=== PATIENT | female | born 1990 | race Caucasian/White ===

== ENCOUNTER 2017-03-05 13:18 | Emergency (ER) | payer BC, OTHER ==
[2017-03-05 13:52] VITALS: BP 111/59
--- NOTE | 2017-03-05 14:17 | UC ---
Respiratory Complaint HPI - HPI Summary HPI Summary: she has had vomiting and nausea earlier in the . this improved. she then started to get congestion and then a cough as well as malaise. this has been slow onset. chills last night without any known fever. - History of Current Complaint Chief Complaint: UCGeneralIllness Stated Complaint: FLU-LIKE SYMPTOMS Time Seen by Provider: 03/05/17 14:07 Hx Obtained From: Patient Hx Last Menstrual Period: 03/17/16 Onset/Duration: Gradual Onset Timing: Constant Severity Initially: Mild Severity Currently: Mild Character: Cough: Nonproductive Aggravating Factors: Nothing Alleviating Factors: Nothing Associated Signs And Symptoms: Positive: Chills, URI, Nasal Congestion. Negative: Dyspnea, Fever, Pleuritic Chest Pain, Wheezing, Dizziness, Calf Pain, Calf Swelling, Sinus Discomfort - Allergies/Home Medications Allergies/Adverse Reactions: Allergies Allergy/AdvReac Type Severity Reaction Status Date / Time No Known Allergies Allergy Verified 03/05/17 13:52 PMH/Surg Hx/FS Hx/Imm Hx Previously Healthy: Yes - Surgical History Surgical History: None - Family History Known Family History: Positive: Hypertension - father, Other - daughter had uri and congestion recently as well. Negative: Cardiac Disease, Diabetes - Social History Alcohol Use: None Substance Use Type: None Smoking Status (MU): Never Smoked Tobacco Review of Systems ENT: Sinus Congestion Respiratory: Cough All Other Systems Reviewed And Are Negative: Yes Physical Exam Triage Information Reviewed: Yes Appearance: Well-Appearing, No Pain Distress, Well-Nourished Vital Signs: Initial Vital Signs Temp 97.6 F 03/05/17 13:48 Pulse 62 03/05/17 13:48 Resp 16 03/05/17 13:48 BP 111/59 03/05/17 13:48 Pulse Ox 100 03/05/17 13:48 Vital Signs Reviewed: Yes Eye Exam: Normal ENT Exam: Normal Dental Exam: Normal Neck exam: Normal Respiratory Exam: Normal Cardiovascular Exam: Normal Abdominal Exam: Normal Musculoskeletal Exam: Normal Neurological Exam: Normal Psychological Exam: Normal Skin Exam: Normal UC Diagnostic Evaluation - Laboratory O2 Sat by Pulse Oximetry: 100 Respiratory Course/Dx - Course Course Of Treatment: uri symptoms. clinically this is not c/w with influenza. we will check as she is and requests the test. she has no worrisome features of bacterial infection nor serious infection. she has normal vitials. - Differential Dx/Diagnosis Provider Diagnoses: viral illness. uri Discharge - Discharge Plan Condition: Good Disposition: HOME Patient Education Materials: Upper Respiratory Infection (ED) Referrals: Yong MCDOWELL,Minerva Cheng [Primary Care Provider] - If Needed
== END 2017-03-05 14:34 | disposition home or self-care (01) ==
LOC: UCCORT 13:18
DX: O99.511 Diseases of the respiratory system complicating pregnancy, first trimester (principal); J06.9 Acute upper respiratory infection, unspecified; Z3A.00 Weeks of gestation of pregnancy not specified
CPT/HCPCS: 87502; 99212; G0463

== ENCOUNTER 2017-05-25 09:06 | Emergency (ER) | payer BC, OTHER ==
[2017-05-25 09:30] VITALS: BP 107/65
--- NOTE | 2017-05-25 10:07 | UC ---
Respiratory Complaint HPI - HPI Summary HPI Summary: Cough, congestion for about 5 days. NO calf pain or swelling. No swelling. NO fever. No chronic lung disease. Worse at night. - History of Current Complaint Chief Complaint: UCGeneralIllness Stated Complaint: BILATERAL EAR PAIN CHEST CONGESTION Time Seen by Provider: 05/25/17 09:50 Hx Obtained From: Patient Hx Last Menstrual Period: 03/17/16 Onset/Duration: Gradual Onset, Lasting Days Timing: Constant Severity Initially: Moderate Severity Currently: Moderate Character: Cough: Nonproductive Aggravating Factors: Deep Breaths, Recumbent Position Alleviating Factors: Upright Position, Spontaneous Resolution Associated Signs And Symptoms: Positive: URI, Nasal Congestion. Negative: Dyspnea - denies air hunger. There is some chest discomfort with deep breaths khoa but more on the right., Fever, Hemoptysis, Calf Pain, Calf Swelling, Edema - Allergies/Home Medications Allergies/Adverse Reactions: Allergies Allergy/AdvReac Type Severity Reaction Status Date / Time No Known Allergies Allergy Verified 05/25/17 09:30 PMH/Surg Hx/FS Hx/Imm Hx Previously Healthy: Yes - Surgical History Surgical History: None - Family History Known Family History: Positive: Hypertension - father, Other - daughter had uri and congestion recently as well. Negative: Cardiac Disease, Diabetes - Social History Occupation: Employed Full-time Lives: With Family Alcohol Use: None Substance Use Type: None Smoking Status (MU): Never Smoked Tobacco - Immunization History Most Recent Influenza Vaccination: not yet - waiting for obgyn to give mercury free inj. Review of Systems Respiratory: Cough All Other Systems Reviewed And Are Negative: Yes Physical Exam Triage Information Reviewed: Yes Appearance: Well-Appearing, No Pain Distress, Well-Nourished Vital Signs: Initial Vital Signs Temp 97.5 F 05/25/17 09:23 Pulse 96 05/25/17 09:23 Resp 18 05/25/17 09:23 BP 107/65 05/25/17 09:23 Pulse Ox 100 05/25/17 09:23 Vital Signs Reviewed: Yes Eyes: Positive: Conjunctiva Clear ENT: Positive: Normal ENT inspection, Hearing grossly normal, Nasal congestion, TMs normal, Muffled voice, Uvula midline. Negative: Pharynx normal, Pharyngeal erythema, TM bulging, TM dull, TM red, Tonsillar swelling, Tonsillar exudate, Trismus Neck: Positive: Supple, Nontender, No Lymphadenopathy Respiratory: Positive: Chest non-tender, Lungs clear, Normal breath sounds, No respiratory distress, No accessory muscle use. Negative: Respiratory distress, Decreased breath sounds, Accessory muscle use, Crackles, Rhonchi, Stridor, Wheezing Cardiovascular Exam: Other - HR is 90. Cardiovascular: Positive: RRR, No Murmur, Pulses Normal, Brisk Capillary Refill Abdomen Description: Positive: Nontender, No Organomegaly, Soft. Negative: Distended, Guarding Musculoskeletal Exam: Normal Musculoskeletal: Positive: Strength Intact, ROM Intact, No Edema, Other: - NO calf pain, swelling and neg homans khoa. Neurological: Positive: Alert, Muscle Tone Normal. Negative: Fatigued Psychological: Positive: Age Appropriate Behavior Skin: Negative: rashes UC Diagnostic Evaluation - Laboratory O2 Sat by Pulse Oximetry: 100 Respiratory Course/Dx - Course Course Of Treatment: PE considered but discomfort is khoa chest, there is no sob , no signs of DVT and no tachycardia. Ears are well khoa without any external canal swelling or tenderness. - Differential Dx/Diagnosis Provider Diagnoses: chest cold. viral uri. acute viral bronchitis. Discharge - Discharge Plan Condition: Good Disposition: HOME Patient Education Materials: Upper Respiratory Infection (ED) Referrals: Yong MCDOWELL,Minerva Cheng [Primary Care Provider] -
== END 2017-05-25 10:08 | disposition home or self-care (01) ==
LOC: UCCORT 09:06
DX: R09.89 Other specified symptoms and signs involving the circulatory and respiratory systems (principal); J06.9 Acute upper respiratory infection, unspecified; J20.8 Acute bronchitis due to other specified organisms
CPT/HCPCS: 99211; G0463

== ENCOUNTER 2017-07-23 08:26 | Emergency (ER) | payer BC ==
[2017-07-23 09:03] VITALS: BP 120/61
--- NOTE | 2017-07-23 09:18 | UC ---
Back Pain HPI - HPI Summary HPI Summary: Per event staff: "states was holding her [age] year old yesterday and felt back "give out." C/o sharp pain across entire lower back, states history of back pain due to herniated discs, shes not sure which level these are at. She is currenlty 28 weeks , saw OBGYN yesterday who suggested a cortisone injection. " -here with her Cheng. -country printer Judson Acosta. he told her to come here for a steroir ijection. -pain is in b/l low back just lateral to sacrum on both sides. no radiation. no w/n/t. no saddle anesthesia. no loss of B/B function. -renata is a PT and showed her a "bunch of exercise" that made pain worse ( extension types). then he showed her opposite exercises (flexion) that seemed to help, but tthen not. then he told her not to do any exercises and just ice. -she hasnt done topical patches. iced a lot. no better -expecting to get a cortisone injection today. + movement, no spotting/bleeding. OB told her everything was nml yesterday. - History of Current Complaint Chief Complaint: UCBackPain Stated Complaint: BACK PAIN Time Seen by Provider: 07/23/17 08:54 Hx Last Menstrual Period: 03/17/16 Pain Intensity: 8 - Allergies/Home Medications Allergies/Adverse Reactions: Allergies Allergy/AdvReac Type Severity Reaction Status Date / Time No Known Allergies Allergy Verified 07/23/17 08:59 Home Medications: Home Medications Amoxicillin PO (*) [Amoxicillin 500 MG CAP*] 500 mg PO BID 07/23/17 [History Confirmed 07/23/17] PMH/Surg Hx/FS Hx/Imm Hx Previously Healthy: Yes - Surgical History Surgical History: None - Family History Known Family History: Positive: Hypertension - father, Other - daughter had uri and congestion recently as well. Negative: Cardiac Disease, Diabetes - Social History Alcohol Use: None Substance Use Type: None Smoking Status (MU): Never Smoked Tobacco - Immunization History Most Recent Influenza Vaccination: not yet - waiting for obgyn to give mercury free inj. Review of Systems Constitutional: Negative Skin: Negative Eyes: Negative ENT: Negative Respiratory: Negative Cardiovascular: Negative Gastrointestinal: Negative Genitourinary: Negative Motor: Negative Neurovascular: Negative Musculoskeletal: Arthralgia Neurological: Negative Psychological: Negative Is Patient Immunocompromised?: No All Other Systems Reviewed And Are Negative: Yes Physical Exam Triage Information Reviewed: Yes Appearance: Well-Nourished, Pain Distress - mild. sitting in chair slightly skewed, favoring her right side. Vital Signs: Initial Vital Signs Temp 98 F 07/23/17 08:57 Pulse 93 07/23/17 08:57 Resp 16 07/23/17 08:57 BP 120/61 07/23/17 08:57 Pulse Ox 100 07/23/17 08:57 Vital Signs Reviewed: Yes Respiratory: Positive: Lungs clear, Normal breath sounds, No respiratory distress Cardiovascular Exam: Normal Cardiovascular: Positive: RRR, No Murmur Abdomen Description: Positive: Other: - gravid Musculoskeletal Exam: Normal - although exam limited d/t pain. she points to b/ l SI joint areas as areas of pain. there is no swelling. no bruising. she ambulates with minimal dififculty. Neurological Exam: Normal Psychological Exam: Normal, Other Back Pain Course/Dx - Course Course Of Treatment: discussed limitations in pain management due to . Explained that cortisone injection would be deferred to pain management, however would require CT imaging that is not recommended w/ . -she can discuss if a medrol dose pack would be more beneficial than risks in . -OOW note given for 2 days. -rest, ice, icy hot patches. -she is tearful and I tried to reconsole the best I could. - Differential Dx/Diagnosis Differential Diagnosis/HQI/PQRI: Herniated Disc, Strain, Sprain Provider Diagnoses: Sacroilitis, Discharge - Discharge Plan Condition: Stable Disposition: HOME Patient Education Materials: Acute Low Back Pain (ED) Forms: *Work Release Referrals: Yong MCDOWELL,Minerva Cheng [Primary Care Provider] - 5 Days Additional Instructions: We talked about limitations in pain management due to . You can discuss oral prednisone with your OB and discuss safety of treatment in . Out of work note given for 07/24 & 07/25/17.
== END 2017-07-23 09:50 | disposition home or self-care (01) ==
LOC: UCCORT 08:26
DX: O26.893 Other specified pregnancy related conditions, third trimester (principal); Z3A.28 28 weeks gestation of pregnancy; M46.1 Sacroiliitis, not elsewhere classified
CPT/HCPCS: 99211; G0463

== ENCOUNTER 2018-04-01 18:26 | Emergency (ER) | payer BC ==
[2018-04-01 19:20] VITALS: BP 123/69
--- NOTE | 2018-04-01 19:37 | UC ---
Bite Injury/Animal HPI - HPI Summary HPI Summary: 27-year-old woman comes in with a tick bite on the right forearm. Patient was out working in the yard with poison sumac 4 days ago. Today she recognized a tick in her right forearm. There is no rash associated with. She feels well otherwise. She has a history of having Lyme disease once and been treated with amoxicillin for IT. She also has rash on the dorsum of her right forearm that' s blistering and it appears to be either poison sumac or poison IV. - History of Current Complaint Chief Complaint: UCSkin Stated Complaint: TICK Time Seen by Provider: 04/01/18 19:19 Hx Last Menstrual Period: 03/09/18 Pain Intensity: 0 - Allergies/Home Medications Allergies/Adverse Reactions: Allergies Allergy/AdvReac Type Severity Reaction Status Date / Time No Known Allergies Allergy Verified 04/01/18 19:15 PMH/Surg Hx/FS Hx/Imm Hx - Additional Past Medical History Additional PMH: Patient is breast-feeding at this time Previously Healthy: Yes - Surgical History Surgical History: None - Family History Known Family History: Positive: Hypertension - father, Other - daughter had uri and congestion recently as well. Negative: Cardiac Disease, Diabetes - Social History Alcohol Use: None Substance Use Type: None Smoking Status (MU): Never Smoked Tobacco - Immunization History Most Recent Influenza Vaccination: not yet - waiting for obgyn to give mercury free inj. Most Recent Tetanus Shot: UTD Review of Systems Constitutional: Negative Skin: Other - SEE HPI Eyes: Negative ENT: Negative Respiratory: Negative Cardiovascular: Negative Gastrointestinal: Negative Motor: Negative Neurovascular: Negative Musculoskeletal: Negative Neurological: Negative Psychological: Negative Is Patient Immunocompromised?: No All Other Systems Reviewed And Are Negative: Yes Physical Exam Triage Information Reviewed: Yes Appearance: Well-Appearing, No Pain Distress, Well-Nourished Vital Signs: Initial Vital Signs Temp 97.2 F 04/01/18 19:16 Pulse 64 04/01/18 19:16 Resp 17 04/01/18 19:16 BP 123/69 04/01/18 19:16 Pulse Ox 100 04/01/18 19:16 Vital Signs Reviewed: Yes Eye Exam: Normal Eyes: Positive: Conjunctiva Clear Neck exam: Normal Neck: Positive: Supple Respiratory: Positive: No respiratory distress Musculoskeletal Exam: Normal Musculoskeletal: Positive: Strength Intact, ROM Intact Neurological Exam: Normal Neurological: Positive: Alert Psychological Exam: Normal Psychological: Positive: Age Appropriate Behavior Skin: Positive: Other - Right forearm there is an excoriated area of 5 mm where the tick was. I see any tick parts in this area now. He is no erythema is no rash. On the dorsum of the forearm there is several areas that are vesicles with clear fluid in theM. Bite Injury Course/Dx - Course Course Of Treatment: We discussed treatment prophylactically of tick bite. Because the patient is breast-feeding at this time she cannot take the doxycycline. I printed out the information for patient's from up-to-date for tick bite prophylaxis for the patient. At this time the patient prefers to do a course of amoxicillin. Micah prescribe a Medrol Dosepak for the spreading of the poison jose m. Follow-up with primary care doctor recheck sooner if worse. - Differential Dx/Diagnosis Provider Diagnoses: TICK BITE. POISON JOSE M Discharge - Sign-Out/Discharge Documenting (check all that apply): Patient Departure All imaging exams completed and their final reports reviewed: No Studies - Discharge Plan Condition: Stable Disposition: HOME Prescriptions: Amoxicillin PO (*) [Amoxicillin 500 MG CAP*] 500 mg PO TID #63 cap methylPREDNISolone [Medrol Dosepak 4 MG*] 4 mg PO .SEE ARY INSTRUCTION #1 ary Patient Education Materials: Tick Bite (ED), Poison Jose M (ED) Referrals: [facility] [Outside] Additional Instructions: FOLLOW UP WITH YOUR DOCTOR IF NOT COMPLETELY IMPROVED. GET RECHECKED FOR ANY WORSENING OF YOUR CONDITION OR QUESTIONS OR CONCERNS. - Billing Disposition and Condition Condition: STABLE Disposition: Home
== END 2018-04-01 19:44 | disposition home or self-care (01) ==
LOC: UCCORT 18:26
DX: T63.481A Toxic effect of venom of other arthropod, accidental (unintentional), initial encounter (principal); Y92.9 Unspecified place or not applicable; L23.7 Allergic contact dermatitis due to plants, except food; T63.791A Toxic effect of contact with other venomous plant, accidental (unintentional), initial encounter; Y92.007 Garden or yard of unspecified non-institutional (private) residence as the place of occurrence of the external cause
CPT/HCPCS: 99212; G0463